=== PATIENT | male | born 1965 | race African-American/Black ===

== ENCOUNTER 2017-04-26 11:04 | Emergency (ER) | payer OTHER ==
[~2017-04-26] VITALS: Ht 162.6 cm; Wt 95.5 kg
[~2017-04-26 11:04] MED LIST: ONDA8TAB10 PO
[2017-04-26 11:07] VITALS: BP 172/95; PULSE 61; RESP 18; O2SAT 95
--- NOTE | 2017-04-26 11:26 | ED.REPORT ---
HPI-Abd Pain M 40 and Over Date of Service Apr 26, 2017 ED Provider: Sohan Santo MD The pt is a 51 y/o male with a hx of HTN who presents to the ED complaining of constant and non-radiating "6/10" diffuse abdominal pain thAt suddenly came on 3 hours ago. There are no modifying factors of the pain. The pt took 2 Percocet 2 hours ago which provided no relief. Associated sx include chills and nausea. He denies pain with palpation, fever, diarrhea, difficulty passing gas, and dysuria. The pt experienced similar sx 2 years ago when he was diagnosed with pancreatitis. Nursing Notes Stated Complaint: PANCREATITIS Chief Complaint: Male Abdominal Pain Nursing Notes Reviewed: Yes ([employer] not reconciled) Allergies: Coded Allergies: No Known Allergies (Unverified , 07/03/15) Scheduled Ondansetron ODT (Ondansetron ODT) 8 Mg Tab.rapdis 8 MG PO TID Scheduled PRN oxyCODONE-Acetaminophen 5-325 mg (oxyCODONE-Acetaminophen 5-325 mg) 1 Each Tablet 1-2 TAB PO Q6H PRN PRN For Pain General Time Seen by MD: 11:21 Chief Complaint Abdominal pain Hx Obtained From: Patient Arrived By: Walk-in Sudden in Onset?: Yes Onset Occurred: 1 - 4 hours ago Symptom Duration: Constant Location: : Diffuse Quality: Painful Radiation: : Does not radiate Severity: Current: Pain level 6 out of 10 Severity: Maximum: Severe Recent Healthcare: No recent doctor visit Past Medical History Past Medical History "Pancreatitis" Jun 2015 [facility] ED - clinically suspected, lipase 65, patient D/C'd home Reports: Hypertension Past Surgical History Reports: Appendectomy Smoking History Never Smoker Social History Alcohol Use: Denies alcohol use Drug Use: Denies drug use Other Social History: Good social support, , Local resident Ambulatory Status Independent Review of Systems Denies: difficulty passing gas Constitutional: Reports: Chills, Denies: Fever GI: Reports: Abdominal pain, Nausea, Denies: Diarrhea Male: Denies Dysuria Complete sys rev & neg: except as marked. Physical Exam Initial Vital Signs Vital Signs (First) Date Time Temp Pulse Resp B/P Pulse Ox O2 Delivery O2 Flow Rate FiO2 04/26/17 11:07 36.4 61 18 172/95 95 Room Air Initial VS: Reviewed, Vital signs abnormal (HTN) Head / Eyes: Atraumatic, Normocephalic Neck: Supple, Non-tender, Full range of motion Extremities: Vascular intact, Neuro intact, No swelling, No tenderness Skin: Warm, Dry, No cyanosis Neurologic: Alert, Oriented, Nonfocal General/Constitutional: Awake, Alert, Well appearing, Cooperative, Not toxic appearing Distress / Hydration: Positive: Distress mild Appearance / Presentation: Positive: Obese (marginally) Respiratory / Chest: Atraumatic, Breath sounds NL, Breath sounds = bilat, No respiratory distress, No rales, No rhonchi, No wheezing Cardiovascular: Heart rate NL, Regular rhythm, Heart sounds NL, No gallop, No murmurs, No rubs Abdomen: Atraumatic, Soft, Non-tender, No guarding, No rebound, BS normoactive Abdominal exam is clinically benign. Back: Atraumatic, Inspection NL, Full range of motion, Painless range of motion , Non-tender Interpretation & Diagnostics Lab Results Interpretation Result Diagram: 04/26/17 1145 04/26/17 1145 Test 04/26/17 11:45 White Blood Count 6.0th/mm3 (3.8-10.1) Red Blood Count 5.71mil/mm3 (4.40-5.80) Hemoglobin 16.2g/dL (13.8-17.2) Hematocrit 45.7% (41.0-50.0) Mean Corpuscular Volume 80.0fL (81-100) Mean Corpuscular Hemoglobin 28.4pg (27.0-35.0) Mean Corpuscular Hemoglobin Concent 35.4% (32.0-37.0) Red Cell Distribution Width 13.1% (12.3-15.4) Platelet Count 199bil/L (150-400) Neutrophils (%) (Auto) 68.5% (40-74) Lymphocytes (%) (Auto) 22.2% (14-46) Monocytes (%) (Auto) 7.0% (4-12) Eosinophils (%) (Auto) 1.7% (0-5) Basophils (%) (Auto) 0.3% (0-3) Sodium Level 138mEq/L (134-144) Potassium Level 4.2mEq/L (3.5-5.2) Chloride Level 99mEq/L (97-108) Carbon Dioxide Level 24mmol/L (18-29) Blood Urea Nitrogen 14mg/dL (6-24) Creatinine 0.99mg/dL (0.76-1.27) Estimat Glomerular Filtration Rate 85mL/min (>59) Glucose Level 206mg/dL (60-99) Calcium Level 9.4mg/dL (8.5-10.1) Magnesium Level 1.9mg/dL (1.6-2.6) Total Bilirubin 0.9mg/dL (0.0-1.2) Aspartate Amino Transf (AST/SGOT) 26U/L (0-50) Alanine Aminotransferase (ALT/SGPT) 40U/L (0-44) Alkaline Phosphatase 62U/L (25-150) Total Protein 7.6g/dL (6.4-8.4) Albumin 4.4g/dL (3.4-5.0) Lipase 22U/L (13-60) Hold Reynolds Top Tube Received (Received) CT Abd / Pelvis Interpretation IMPRESSION: No definite, acute abnormality can be seen. A stable left adrenal nodule is seen. This is not significantly changed compared to 2015. At clinical discretion, please consider a dedicated adrenal protocol MRI for further evaluation (assuming that there is no contraindication). Mild symmetric prominence of inguinal lymph nodes is seen, yet without focal or pathologic enlargement. Incidental note is made of: Fatty liver infiltration Simple appearing right renal cyst Fat-containing periumbilical hernia Diverticulosis is seen, without findings of active diverticulitis. Fat-containing left inguinal hernia Dictated by: Anirudh Jung M.D. on 04/26/2017 at 13:47 Approved by: Anirudh Jung M.D. on 04/26/2017 at 13:51 Study type: Abdominal CT IV contrast Interpretation / Wet Read by: Interpret - Radiologist Re-Eval/Medical Decision Med Decision/Clinical Course This is a 51-year-old male reports he woke up and developed acute lower abdominal pain this morning is very severe, somewhat reminiscent severe pain that he told he has pancreatitis with. It was idiopathic, and actual view of the records indicates there was clinical concern for pancreatitis, the patient' s lipase and CT imaging were negative at that time. He has no history of gallstones, does not drink alcohol or use recreational drugs, has no infectious symptoms. Denies any recent moderate pain, complaining of lower abdominal discomfort, but is not markedly tender and has a benign clinical abdomen. In the severity of his pain lab work was obtained which was normal, and ultimately a CT was pursued as he had persistent symptoms initially-the CT was negative for clear acute pathology. His symptoms resolved with the treatment in the department. He is much improved. At this point a dangerous etiology is not identified, there are no findings radiographic or laboratory findings suggest pancreatitis-the clinical presentation is also atypical. Routine precautions for bowel pain of unclear etiology reviewed, patient's discharge much improved condition. Return precautions reviewed. Source of Hx: Old records Time of Eval: 01:18 Re-Evaluation/Progress Note: Rechecked pt. He is sleeping comfortably. Discussed lab results and plan to do a CT with the pt's . She understands. All questions answered. Time of Eval: 02:27 Patient Status: Condition improved Re-Evaluation/Progress Note: Rechecked pt. Discussed lab results, imaging results, diagnosis and plan to discharge. Pt understands and agrees with the plan. F/U instruction and RTER warning given. All questions addressed. Differential Diagnosis: Positive: Acute abdominal pain, Negative: Abdominal aortic aneurysm, Appendicitis, Diverticular disease, Esophageal rupture, Esophagitis, Gun shot wound abdomen, Pancreatitis, Peritonitis, Stab wound abdomen, Volvulus Counseled Regarding: Diagnosis, Lab results, Need for follow-up, When/why to return to ED Discharge & Departure Primary Impression: Abdominal pain Abdominal location: generalized Qualified Code: R10.84 - Generalized abdominal pain Disposition: Home Vital Signs - All Vital Signs Date Time Temp Pulse Resp B/P Pulse Ox O2 Delivery O2 Flow Rate FiO2 04/26/17 15:15 36.4 54 18 117/67 95 Room Air 04/26/17 14:48 54 117/67 95 Room Air 04/26/17 13:41 56 117/63 95 Room Air 04/26/17 11:07 36.4 61 18 172/95 95 Room Air )( All Prior VS Reviewed: Yes Condition: Stable Additional Instructions: 1. A dangerous cause of the abdominal pain was not identified. 2. Your blood status and CT scan today were normal, with no findings of pancreatitis today. 3. Drink small sips of fluids, and advance diet slowly as tolerated. 4. If needed for pain take oxycodone/APAP 5/325 1-2 tabs up to every 6 hours. Note: This medication contains narcotic and causes drowsiness. No driving for at least 4-6 hours after taking. He uses sparingly. 5. Return if new, or worsening symptoms. 6. Follow-up with regular doctor if symptoms are not resolved in a few days Referrals: Mellisa Diallo MD (PCP) Scribe Attestation Portions of this note were transcribed by Jerson Tran. I,, personally performed the history,physical exam and medical decision-making;I reviewed and confirmed the accuracy of the information in the transcribed note. Signed by Stanislaw Giles. 04/26/17 copies to: Mellisa Diallo MD, Matthew F MD Apr 26, 2017 11:26 Jerson Tran Apr 26, 2017 11:36
[2017-04-26] MEDS ORDERED: HYDROmorphone 0.5 mg/0.5 mL iSecure Syringe IVPUSH PRN (11:30)
[2017-04-26] MEDS ORDERED: Ondansetron 2 mg/mL 2 mL Inj IVPUSH ONE (11:30)
[2017-04-26 11:55] LABS: BASOPHILS % (AUTO) 0.3 % (0-3); EOSINOPHILS % (AUTO) 1.7 % (0-5); Mean Corpuscular Hemoglobin 28.4 pg (27.0-35.0); NEUTROPHILS % (AUTO) 68.5 % (40-74); Platelet Count 199 bil/L (150-400)
[2017-04-26 12:18] LABS: Magnesium 1.9 mg/dL (1.6-2.6)
[2017-04-26 13:41] VITALS: BP 117/63; PULSE 56; O2SAT 95
--- NOTE | 2017-04-26 13:54 | DRSVH ---
PROCEDURE: CT ABDOMEN AND PELVIS WITH CONTRAST ([id number]) INDICATIONS: ABd pain TECHNIQUE: After the administration of intravenous contrast, 5 mm thick sections acquired from the diaphragm to the symphysis. 5 mm coronal and sagittal reformats were acquired. For radiation dose reduction, the following was used: automated exposure control, adjustment of mA and/or kV according to patient gui riojas. COMPARISON: [facility], CT, CT ABD PELVIS W CON, 07/03/2015, 3:16. FINDINGS: Image quality: Excellent. ABDOMEN: Lung bases: Lung bases are clear. Heart size is normal. Solid organs: Liver and spleen are normal in size and enhancement. Diffuse fatty liver infiltration is noted. Gallbladder wall is not thickened. Biliary system is non dilated. Pancreas enhances nor letty. There is a left adrenal nodule seen along the medial limb of the gland measuring 17 x [address] axial dimension. No right adrenal nodules. Kidneys demonstrate normal size and enhancement, without hydronephrosis. There is a 3.1 cm water den sity cyst involving the lateral aspect of the right kidney. Peritoneum and bowel: Bowel loops demonstrate normal wall thickness and caliber. No free fluid or a ir. Diverticulosis is seen, without findings of active diverticulitis. Nodes and vessels: No retroperitoneal or mesenteric adenopathy by size criteria. Aorta and inferior vena cava are normal in size. Miscellaneous: A moderate periumbilical hernia is seen, containing fat. PELVIS: Genitourinary: Bladder wall thickness is normal. Miscellaneous: Mild, symmetric prominence of inguinal lymph nodes can be seen. No enlarged inguinal or pelvic lymph nodes are seen. There is a fat-containing left inguinal hernia seen. Bones: No suspicious bony lesions. No vertebral body compression fractures. IMPRESSION: No definite, acute abnormality can be seen. A stable left adrenal nodule is seen. This is not significantly changed compared to 2015. At clinic al discretion, please consider a dedicated adrenal protocol MRI for further evaluation (assuming that there is no contraindication). Mild symmetric prominence of inguinal lymph nodes is seen, yet without focal or pathologic enlargemen t. Incidental note is made of: Fatty liver infiltration Simple appearing right renal cyst Fat-containing periumbilical hernia Diverticulosis is seen, without findings of active diverticulitis. Fat-containing left inguinal hernia Dictated by: Anirudh Jung M.D. on 04/26/2017 at 13:47 Approved by: Anirudh Jung M.D. on 04/26/2017 at 13:51
[2017-04-26] MEDS ORDERED: OXYC1TAB24 PO (14:32)
[2017-04-26 14:48] VITALS: BP 117/67; PULSE 54; O2SAT 95
[2017-04-26 15:15] VITALS: BP 117/67; PULSE 54; RESP 18; O2SAT 95
== END 2017-04-26 15:15 | disposition home or self-care (01) ==
LOC: SED 11:04
DX: R10.84 Generalized abdominal pain (principal); I10 Essential (primary) hypertension
CPT/HCPCS: 36415; 74177; 80053; 83690; 83735; 85025; 96374; 96375; 99285; J1170; J2405; Q9967